=== PATIENT | male | born 1970 | race Caucasian/White ===

== ENCOUNTER → 2020-03-10 14:26 | Outpatient (CLI) | payer BC, SELFPAY ==
[2020-03-12 08:34] LABS: Covid-19 Nasal PCR Sendout P&C POSITIVE
== END ==
PROVIDERS: PCP Internal Medicine Adolescent Medicine; Visit Provider Internal Medicine Adolescent Medicine
DX: Z20.822 Contact with and (suspected) exposure to COVID-19 (principal); U07.1 COVID-19
CPT/HCPCS: U0004

== ENCOUNTER → 2020-05-19 11:54 | Outpatient (CLI) | payer BC, SELFPAY ==
--- NOTE | 2020-05-19 11:57 | XR_ITS ---
PROCEDURE: XR FOREARM RT 2V CLINICAL INDICATION: RT FOREARM PAIN COMPARISON: No exams were available for comparison FINDINGS: No fracture or dislocation. No lytic or blastic change. There is normal mineralization. The joint spaces are well-preserved. No significant degenerative/arthritic changes. No erosive changes evident. Other findings:None. IMPRESSION: No acute findings. Dictated by: Clark Segovia MD 05/19/2020 16:04 Clark Segovia MD in [place] 05/19/2020 16:04
== END ==
PROVIDERS: PCP Internal Medicine Adolescent Medicine; Visit Provider Internal Medicine Adolescent Medicine
DX: M79.631 Pain in right forearm (principal)
CPT/HCPCS: 73090

== ENCOUNTER 2020-07-08 10:00 | Outpatient (RCR) | payer BC, SELFPAY ==
--- NOTE | 2020-06-10 14:12 | HMH.OTOPEV ---
OT Inpatient Evaluation Rehab OT Outpatient Eval Start: 06/10/20 13:47 Freq: Status: Active Protocol: Document 06/10/20 13:48 PATTI (Rec: 06/10/20 14:09 PATTI [id number]) Electronically Signed By Alyse Chau OT 06/10/20 13:48 Outpatient Therapy Subjective History Subjective History 50 year old male referred to skilled OP OT services for pain in the right elbow for the past 3 months. Patient verbalize pain levels of 7/10 pain during extension AROM. Patient exhibit AROM of R UE WFL. Chief Complaint Pain Symptom Type Ache,Throb Symptoms Relieved By Nothing Symptoms Aggravated By Physical Activity Prior Functional Limitations None Current Functional Limitations Lifting,Desk Work/Reading Symptom Description Intermittent Level of pain today (0-10) 1 Pain scale - at its best (0-10) 1 Pain scale - at its worst (0-10) 7 Shoulder/Elbow Eval Shoulder Objective Measurements Elbow Objective Measurements Elbow Special Tests Resistive Tennis Elbow (Cozen's) Test Negative Right Elbow Tinel's Sign Positive Right Wrist/Hand Eval Farm Mechanic/Pinch Strength Right Farm Mechanic Strength Measurement (lbs) 40 Left Farm Mechanic Strength Measurement (lbs) 80 OT Outpatient Assessment Impairments Problems/Impairments Impaired Strength,Impaired Lifting,Impaired Work Activities,Subjective C/O Pain Prognosis Rehab Potential Good Clinical Impression Consistent with Diagnosis Yes Short Term Goals Number of Weeks 2 Increase Strength Yes: R special event assistant strength: 50# Decrease Subjective C/O Pain Yes: 5/10 pain at worst Patient to be Ind w/ Advanced HEP Yes: Strengthening Penitentiary Goals Number of Weeks 4 Increase Strength Yes: R special event assistant strength: 60# Decrease Subjective C/O Pain Yes: 3/10 pain at worst Patient to be Ind w/ Advanced HEP Yes: Advance strengthening Outpatient Therapy Plan of Care Treatment Plan May Include Therapeutic Exercise Including Home Yes Exercise Program Manual Therapy Techniques Yes Therapeutic Activities to Return to Yes Previous Functional/Work Level Thermal Modalities Yes Electrical Stimulation Yes Ultrasound/Phonophoresis Yes Iontophoresis Yes Eval/Re-Eval Yes Aquatic Therapy Yes Frequency Times per week 2 Duration Number of Weeks 4 Addendums This patient is a candidate for social No or vocational
== END 2020-09-08 14:31 | disposition home or self-care (01) ==
LOC: OT 10:00
PROVIDERS: PCP Internal Medicine Adolescent Medicine; Visit Provider Internal Medicine Adolescent Medicine
DX: M79.631 Pain in right forearm (principal)
CPT/HCPCS: 97014; 97035; 97110; 97140; 97165; G0283

== ENCOUNTER → 2020-12-06 08:09 | Outpatient (CLI) | payer BC, SELFPAY ==
[2020-12-06 08:35] LABS: Basophils # 0.1 K/mm3 (0-0.2); Basophils % 1.3 % (0.1-2.0); Eosinophils # 0.1 K/mm3 (0.0-0.4); Eosinophils % 3.4 % (0.1-12.0); Hematocrit 46.2 % (42.0-52.0); Hemoglobin 15.6 g/dL (14.1-18.0); Lymphocytes # 1.6 K/mm3 (0.7-4.5); Lymphocytes % 39.3 % (10-50); Mean Corpuscular HGB Conc 33.8 g/dL (31.8-35.4); Mean Corpuscular Hemoglobin 30.4 pg (27.0-31.2); Mean Corpuscular Volume 89.8 fl (80-94); Mean Platelet Volume 8.2 fl (7.4-10.4); Monocytes # 0.3 K/mm3 (0.1-1.0); Monocytes % 8.1 % (1.7-9.3); Neutrophils # 1.9 K/mm3 (1.8-7.8); Neutrophils % 47.9 % (37.0-80.0); Platelet Count 192 K/mm3 (142-424); Red Blood Count 5.14 M/mm3 (4.60-6.20); Red Cell Distribution Width 13.4 % (11.5-17.5); White Blood Count 3.9 K/mm3 (4.8-10.8)
[2020-12-06 09:17] LABS: Alanine Aminotransferase 34 U/L (12-78); Albumin Level 3.9 g/dl (3.5-5.0); Albumin/Globulin Ratio 1.6 (1.1-1.8); Alkaline Phosphatase 79 U/L (38-126); Anion Gap 8.3 mEq/L (5-15); Aspartate Amino Transferase 27 U/L (17-59); Bilirubin,Total 0.5 mg/dl (0.2-1.3); Blood Urea Nitrogen 12 mg/dl (9-20); Calcium 8.6 mg/dl (8.4-10.2); Carbon Dioxide 31 mmol/L (22.0-30.0); Chloride 106 mmol/L (98-107); Chol/HDL Ratio 4.5 (1-3.5); Cholesterol 207 mg/dl (140-200); Estimated Glomerular Filt Rate 103 ml/min (>60); GFR (African American) 124 ML/MIN (>60); Globulin 2.5 g/dL (1.3-3.2); Glucose 100 mg/dl (74-100); HDL Cholesterol 46 mg/dl (40-60); Potassium 4.3 mmoL/L (3.5-5.1); Sodium 141 mmol/L (136-145); Total Protein,Serum 6.4 g/dl (6.3-8.2); Triglycerides 179 mg/dl (30-150); VLDL Cholesterol 36 mg/dL (0-40)
[2020-12-06 09:28] LABS: Direct LDL Cholesterol 112.83 mg/dL (100-129)
== END ==
PROVIDERS: Visit Provider Internal Medicine Adolescent Medicine
DX: Z00.00 Encounter for general adult medical examination without abnormal findings (principal)
CPT/HCPCS: 36415; 80053; 80061; 85025

== ENCOUNTER 2021-07-24 18:28 | Emergency (ER) | payer BC, SELFPAY ==
[2021-07-24 18:40] VITALS: BP 140/90; PULSE 82; RESP 18; TEMP 36.9; O2SAT 98; BMI 24.3
--- NOTE | 2021-07-24 19:34 | HMH.EDUTC ---
[facility] [place] Disposition Clinical Impression: Urticaria Disposition: Home, Self-Care Condition on Discharge: Good Instructions: Hives, DI for Hives, Methylprednisolone Additional Instructions: Look around and see if there is something that you may have had an allergic reaction too Start oral steriods tomorrow You may take Benadryl to help with reaction but you recieved some in the [facility] so make sure not to take any for the next 4 hours Return if needed Follow up with your Family Doctor if no improvement or any worsening of symptoms Prescriptions: predniSONE [Prednisone 20mg Tab] 20 mg PO BID 5 Days #10 tab Transmission Status: Pending to [facility] #[id number] Referrals: Shai Goins MD [Primary Care Provider] - As needed Time of Disposition: 20:20 Medical Decision Making - Dario Inquiry Pt receiving controlled substance: No Dario was queried for this patient: No Vital Signs: 07/24/21 18:40 07/24/21 20:02 Temperature 98.5 F 98.5 F Temperature Source Oral Pulse Rate 82 Pulse Rate [Right Brachial] 82 Respiratory Rate 18 18 Blood Pressure 140/90 Blood Pressure [Right Arm] 140/90 Blood Pressure Mean [Right Arm] 106 Blood Pressure Source [Right Arm] Automatic Cuff Blood Pressure Position [Right Arm] Sitting 02 Sat by Pulse Oximetry 98 Oxygen Delivery Method Room Air Orders (Tests/Meds): ED MEDICATIONS Discontinued Medications Generic Name Dose Route Start Last Admin Trade Name Freq PRN Reason Stop Dose Admin Diphenhydramine HCl 25 mg 07/24/21 19:37 07/24/21 19:50 Diphenhydramine 50mg/Ml Vial IM 07/24/21 19:38 25 mg ONCE ONE Administration Famotidine 20 mg 07/24/21 19:37 07/24/21 19:50 Famotidine 20mg Tablet PO 07/24/21 19:38 20 mg ONCE ONE Administration Loratadine 10 mg 07/24/21 19:38 07/24/21 19:50 Loratadine 10mg Tablet PO 07/24/21 19:39 10 mg ONCE ONE Administration Methylprednisolone Sodium Succinate 125 mg 07/24/21 19:37 07/24/21 19:50 Methylprednisolone Sod Succ 125mg Vial IM 07/24/21 19:38 125 mg ONCE ONE Administration Medical Decision Narrative: rash much improved after medication/injections [facility] [place] HPI - General Stated complaint: possible allergic reaction Time Seen by Provider: 07/24/21 19:34 Mode of Arrival: Ambulatory Source of Information: Patient Limitations: No Limitations Description of Symptoms (Recalled from Triage Doc. by RN): PATIENT C/O RASH, POSSIBLE ALLERGIC REACTION HEENT Symptoms (Recalled from RN notes): No Resp Symptoms (Recalled from RN notes): No Skin Symptoms (Recalled from RN notes): Yes MS Symptoms (Recalled from RN notes): No Functional Status (Recalled from RN notes): WNL - History of Present Illness Provider Complaint: Patient states that he just got back from [place] and woke up with hives all over his neck, face and arms State that he has not been in anything that he is aware of that he may be allergic too but noticed it was spreading so he came in Denies trouble breathing - Related Data Home Medications Medication Instructions Recorded Confirmed Omeprazole [Omeprazole 20mg Tab] 20 mg PO DAILY 10/16/17 10/16/17 Previous Rx's Medication Instructions Recorded predniSONE [Prednisone 20mg 20 mg PO BID 5 Days #10 tab 07/24/21 Tab] Allergies Allergy/AdvReac Type Severity Reaction Status Date / Time No Known Allergies Allergy Verified 10/16/17 09:23 - Worker's Comp Is this a Worker's Comp case?: No [facility] History - Hepatitis A Screen Attestation statement:: This patient has been screened for Hepatitis A risk factors. I have reviewed the patient's past medical history: Yes Medical History: Reports:: Gastroesophageal Reflux Disease(GERD) Denies:: Cancer, Diabetes Mellitus Type 1, Diabetes Mellitus Type 2, Hypertension, MRSA Other Surgeries: Yes: Other (vasectomy) Amputation: No Fractures: No - Social History Smoking Status: Never smoker Alcohol I
[2021-07-24 20:02] VITALS: BP 140/90; PULSE 82; RESP 18; TEMP 36.9; O2SAT 98
== END 2021-07-24 20:36 | disposition home or self-care (01) ==
PROVIDERS: Emergency Provider Nurse Practitioner; PCP Internal Medicine Adolescent Medicine
DX: L50.0 Allergic urticaria (principal); K21.9 Gastro-esophageal reflux disease without esophagitis
CPT/HCPCS: 96372

== ENCOUNTER → 2022-04-15 10:41 | Outpatient (CLI) | payer BC, SELFPAY ==
[2022-04-15 12:58] LABS: Chloride 108 mmol/L (98-107)
[2022-04-15 12:59] LABS: Potassium 4.3 mmoL/L (3.5-5.1); Sodium 142 mmol/L (136-145)
[2022-04-15 13:01] LABS: Alanine Aminotransferase 26 U/L (12-78); Aspartate Amino Transferase 24 U/L (17-59); Blood Urea Nitrogen 17 mg/dl (9-20); Estimated Glomerular Filt Rate 79 ml/min (>60); GFR (African American) 95 ML/MIN (>60)
[2022-04-15 13:02] LABS: Albumin Level 4.7 g/dl (3.5-5.0); Albumin/Globulin Ratio 1.8 (1.1-1.8); Alkaline Phosphatase 81 U/L (38-126); Anion Gap 10.3 mEq/L (5-15); Bilirubin,Total 0.5 mg/dl (0.2-1.3); Calcium 8.9 mg/dl (8.4-10.2); Carbon Dioxide 28 mmol/L (22.0-30.0); Globulin 2.6 g/dL (1.3-3.2); Glucose 99 mg/dl (74-100); Total Protein,Serum 7.3 g/dl (6.3-8.2)
[2022-04-15 13:32] LABS: Thyroid Stimulating Hormone 2.13 uIU/mL (0.465-4.68)
== END ==
PROVIDERS: PCP Internal Medicine Adolescent Medicine; Visit Provider Nurse Practitioner Family
DX: R00.2 Palpitations (principal)
CPT/HCPCS: 36415; 80053; 83735; 84443

== ENCOUNTER → 2022-12-15 07:41 | Outpatient (CLI) | payer BC, SELFPAY ==
--- OUTSIDE RECORDS SUMMARY | 2022-12-15 07:43 | XMS_ITS | Patient Health Record ---
Author Name Unknown Organization [facility] Address [address] [place] [address] Care Team Providers Care Nut Picker Name Role Phone Shai Goins Primary Care Provider [phone] Shai Goins Unavailable Unavailable Alondra Romero Unavailable [phone] Analilia Ibrahim Unavailable [phone] ALLERGIES Allergen (clinical drug ingredient) Drug/Non Drug Allergy documented on EMR Reaction Allergy Type Onset Date Status Bee stings (uncoded) Unknown Allergy Active RESULTS Component Value Reference Range Notes M-Comprehensive Metabolic Pa opal Reviewed date:04/17/2022 11:56:32 AM Interpretation: Performing Lab: Notes/Report: NA 142 136-145 mmol/L K 4.3 3.5-5.1 mmoL/L CL 108 98-107 mmol/L CO2 28 22.0-30.0 mmol/L GAP 10.3 5-15 mEq/L BUN 17 9-20 mg/dl CREATT 1.00 0.66-1.25 mg/dl GFRAA 95 >60 ML/MIN EGFR 79 >60 ml/min GLU 99 74-100 mg/dl CA 8.9 8.4-10.2 mg/dl BILIT 0.5 0.2-1.3 mg/dl AST 24 17-59 U/L ALT 26 12-78 U/L
[2022-12-15 08:15] LABS: Basophils % 0.9 % (0.1-2.0); Eosinophils # 0.1 K/mm3 (0.0-0.4); Eosinophils % 2.6 % (0.1-12.0); Hematocrit 46.8 % (42.0-52.0); Hemoglobin 16.2 g/dL (14.1-18.0); Lymphocytes # 1.6 K/mm3 (0.7-4.5); Lymphocytes % 36.7 % (10-50); Mean Corpuscular HGB Conc 34.6 g/dL (31.8-35.4); Mean Corpuscular Hemoglobin 30.6 pg (27.0-31.2); Mean Corpuscular Volume 88.5 fl (80-94); Mean Platelet Volume 8.7 fl (7.4-10.4); Monocytes # 0.3 K/mm3 (0.1-1.0); Monocytes % 7.9 % (1.7-9.3); Neutrophils # 2.3 K/mm3 (1.8-7.8); Neutrophils % 51.9 % (37.0-80.0); Platelet Count 146 K/mm3 (142-424); Red Blood Count 5.29 M/mm3 (4.60-6.20); Red Cell Distribution Width 13.8 % (11.5-17.5); White Blood Count 4.4 K/mm3 (4.8-10.8)
[2022-12-15 09:18] LABS: Alanine Aminotransferase 46 U/L (12-78); Albumin Level 4.3 g/dl (3.5-5.0); Albumin/Globulin Ratio 1.6 (1.1-1.8); Alkaline Phosphatase 78 U/L (38-126); Anion Gap 12.1 mEq/L (5-15); Aspartate Amino Transferase 36 U/L (17-59); Bilirubin,Total 0.5 mg/dl (0.2-1.3); Blood Urea Nitrogen 16 mg/dl (9-20); Calcium 9.1 mg/dl (8.4-10.2); Carbon Dioxide 28 mmol/L (22.0-30.0); Chloride 103 mmol/L (98-107); Chol/HDL Ratio 5.8 (1-3.5); Cholesterol 236 mg/dl (140-200); Estimated Glomerular Filt Rate 89 ml/min (>60); GFR (African American) 108 ML/MIN (>60); Globulin 2.7 g/dL (1.3-3.2); Glucose 102 mg/dl (74-100); HDL Cholesterol 41 mg/dl (40-60); Potassium 4.1 mmoL/L (3.5-5.1); Sodium 139 mmol/L (136-145); Triglycerides 156 mg/dl (30-150); VLDL Cholesterol 31 mg/dL (0-40)
[2022-12-15 09:28] LABS: Direct LDL Cholesterol 139.69 mg/dL (100-129)
== END ==
PROVIDERS: PCP Internal Medicine Adolescent Medicine; Visit Provider Internal Medicine Adolescent Medicine
DX: Z00.00 Encounter for general adult medical examination without abnormal findings (principal)
CPT/HCPCS: 36415; 80053; 80061; 85025

== ENCOUNTER 2023-07-19 20:35 | Emergency (ER) | payer BC, SELFPAY ==
[2023-07-19 20:36] VITALS: BP 136/81; PULSE 87; RESP 20; TEMP 36.6; O2SAT 98; BMI 24.0
--- NOTE | 2023-07-19 21:21 | XR_ITS ---
PROCEDURE INFORMATION: Exam: XR Right Foot Exam date and time: 07/19/2023 9:21 PM Age: 53 years old Clinical indication: Pain; Foot; Right; Additional info: Foot injury, base of 5th mt TECHNIQUE: Imaging protocol: Radiologic exam of the right foot. Views: 3 or more views. Total images: 3 COMPARISON: No relevant prior studies available. FINDINGS: Bones/joints: Acute transverse nondisplaced fracture of the base of the 5th metatarsal with intra-articular extension. No joint dislocation. Mild degenerative change 1st MTP joint. No concerning bone lesions. Tiny plantar calcaneal enthesophyte. Mild soft tissue swelling adjacent to the 5th metatarsal fracture. Soft tissues: See Bones/joints finding. IMPRESSION: Acute nondisplaced transverse fracture base of the 5th metatarsal.
--- NOTE | 2023-07-19 21:24 | HMH.EDGENADL ---
Discharge Plan Disposition Patient Disposition: Home, Self-Care Prescriptions Prescriptions: New hydrocodone-acetaminophen 5-325 mg tablet 1 tab PO Q6H PRN (Reason: pain) 3 Days Qty: 12 0RF No Action omeprazole 20 MG tablet,delayed release (DR/EC) 20 mg PO DAILY prednisone 20 MG tablet 20 mg PO BID 5 Days Qty: 10 0RF Referrals Follow up/Referrals: Troy Gillespie DO [Staff Physician] - See instructions Shai Goins MD [Primary Care Provider] - See instructions Activity Restrictions/Add. Instructions Additional Instructions/Restrictions: Your fracture appears to be an avulsion fracture known as a pseudo Fernandes fracture of the base of the fifth metatarsal shaft. However there is a questionable area more proximal to the shaft that which requires nonweightbearing. Please remain nonweightbearing and follow-up with orthopedic surgeon until instructed to do otherwise. Clinical Impressions Clinical Impression: Closed fracture of fifth metatarsal bone Discharge ED Provider: Soraida Bravo General Adult HPI General Chief complaint: Extremity Injury, Lower Stated complaint: Right foot injury Time Seen by Provider: 07/19/23 21:19 History of Present Illness HPI narrative: Patient is a 53-year-old male presents today with a right foot injury. With states he was leaving dinner stepped off the curb wrong had an inversion injury and felt a pop in the right middle aspect of the lateral side of his foot right the base of his fifth metatarsal. Has had pain since that time came straight to the emergency department has not had any pain medicine. Denies any other past medical history of any other injuries. Related Data Home Medications Medication Instructions Recorded Confirmed omeprazole 20 mg tablet,delayed 20 mg PO DAILY GERD 10/16/17 10/16/17 release Previous Rx's Medication Instructions Recorded prednisone 20 mg tablet 20 mg PO BID 5 days #10 tabs 07/24/21 hydrocodone 5 mg-acetaminophen 325 1 tab PO Q6H PRN pain 3 days #12 07/19/23 mg tablet tabs Allergies Allergy/AdvReac Type Severity Reaction Status Date / Time No Known Allergies Allergy Verified 10/16/17 09:23 [facility] Disclaimer: The information contained in this section may have been updated after the patient was seen, as this information can be updated by other users. Social History Smoking Status: Never smoker alcohol intake: never current occupational status: other Travel in the last 8 weeks: None ROS Obtained: Yes All systems reviewed & no additional complaints except as documented Physical Exam General General appearance: alert and in no apparent distress Respiratory Respiratory exam: Present normal lung sounds bilaterally Cardiovascular Cardiovascular exam: Present regular rate and normal rhythm Extremities Exam Extremities exam: Present other (Patient has swelling and tenderness at the base of the lateral aspect of the midfoot of the fifth metatarsal no significant pain or swelling elsewhere specifically no ankle or the rest of the foot he is neurovascular tact) Neurological Exam Neurological exam: Present alert and oriented X3 Medical Decision Making Dario Inquiry Pt receiving controlled substance: No Vital Signs: 07/19/23 20:36 07/19/23 21:30 Temperature 97.9 F Temperature Source Tympanic Pulse Rate 85 Pulse Rate [Right Radial] 87 Respiratory Rate 20 18 Blood Pressure 136/81 Blood Pressure [Right Arm] 136/81 Blood Pressure Mean [Right Arm] 99 02 Sat by Pulse Oximetry 98 97 Oxygen Delivery Method Room Air Room Air Orders (Tests/Meds): ORDERS Category Date Time Status Foot XR right minimum 3 views [XR foot RT min 3V] Stat Exams 07/19/23 21:21 Taken Medical Decision Narrative: 53-year-old male with presenting symptom of inversion injury and pain and swelling over the base of the fifth metatarsal. Differential includes sprain, Fernandes fracture pseudo Fernandes fracture etc. Will get a plain film and reassess. Patient denies wanting any pain medication at the moment. X-ray performed to person interpreted shows a base of the fifth metatarsal fracture appears to be a avulsion fracture known as a pseudo Fernandes fracture however there is a more transverse opacity which may be a more proximal fracture which is higher risk of avascular necrosis and poor wound healing if not treated in a nonweightbearing method. Therefore posterior slab and crutches were given and he has been advised to be nonweightbearing until seen by an orthopedic surgeon. He was discharged in stable condition. Procedures Orthopedic Splinting/Casting Injury #1: Side: left Lower Extremity Injury Location: lower leg Lower Extremity Immobilizer: posterior splint Other Orthopedic Equipment: crutches Post Cast/Splinting Neuro Status: intact Post Cast/Splinting Vasc Status: intact Critical Care Critical Care Time Critical Care Time: No
[2023-07-19 21:30] VITALS: BP 136/81; PULSE 85; RESP 18; O2SAT 97
[2023-07-19 22:14] VITALS: BP 137/84; PULSE 70; RESP 20; TEMP 36.6; O2SAT 98
== END 2023-07-19 22:19 | disposition home or self-care (01) ==
PROVIDERS: Emergency Provider Student in an Organized Health Care Education/Training Program; PCP Internal Medicine Adolescent Medicine
DX: S92.354A Nondisplaced fracture of fifth metatarsal bone, right foot, initial encounter for closed fracture (principal); M79.674 Pain in right toe(s); W10.1XXA Fall (on)(from) sidewalk curb, initial encounter
CPT/HCPCS: 29515; 73630; 99283